=== PATIENT | female | born 1985 | race Caucasian/White ===

== ENCOUNTER 2023-06-18 11:42 | Emergency (ER) | payer MEDICAID, SELFPAY ==
[2023-06-18 11:46] VITALS: BP 120/83; PULSE 76; RESP 18; TEMP 36.5; O2SAT 100; BMI 25.4
--- NOTE | 2023-06-18 12:46 | ED.SKABFB1 ---
HPI - Skin/Abscess/Foreign Bdy General Chief complaint: Skin/Abscess/Foreign Body Stated complaint: UPPER EXTREMITY PAIN Time Seen by Provider: 06/18/23 11:51 Source: patient Mode of arrival: walk-in Limitations: no limitations History of Present Illness HPI narrative: 37-year-old female presents from drug rehab facility for an abscess on her right forearm. She injects subcutaneously narcotics. She states there is no needle broke off in there and it started within the last day or 2. No drainage. The pain is moderate and continuous. Related Data Home Medications Medication Instructions Recorded Confirmed buprenorphine 2 mg-naloxone 0.5 mg 1 film sublingual Q24H 06/18/23 06/18/23 sublingual film (Suboxone) buprenorphine 4 mg-naloxone 1 mg 1 film sublingual BID 06/18/23 06/18/23 sublingual film (Suboxone) clonidine HCl 0.1 mg tablet mg 06/18/23 cyclobenzaprine 5 mg tablet 5 mg PO Q12H PRN muscle spasm 06/18/23 06/18/23 dicyclomine 10 mg capsule 10 mg PO BID PRN abdominal pain 06/18/23 06/18/23 diphenhydramine HCl 25 mg tablet 25 mg PO BEDTIME PRN sleep 06/18/23 06/18/23 (Banophen) hydroxyzine pamoate 25 mg capsule 25 mg PO Q6H PRN itching 06/18/23 06/18/23 ibuprofen 600 mg tablet 600 mg PO Q6H PRN pain 06/18/23 06/18/23 melatonin 10 mg tablet 10 mg PO BEDTIME PRN sleep 06/18/23 06/18/23 naloxone 4 mg/actuation nasal spray 4 mg intranasal PRN opioid overdose 06/18/23 ondansetron 8 mg disintegrating 8 mg PO Q8H PRN nausea and vomiting 06/18/23 06/18/23 tablet Previous Rx's Medication Instructions Recorded cephalexin 500 mg capsule 500 mg PO QID 10 days #40 caps 06/18/23 sulfamethoxazole 800 1 tab PO BID 10 days #20 tabs 06/18/23 mg-trimethoprim 160 mg tablet (Bactrim DS) Allergies Allergy/AdvReac Type Severity Reaction Status Date / Time No Known Drug Allergies Allergy Verified 06/18/23 11:48 Review of Systems ROS Narrative A ten point review of systems is negative except as noted above. Exam Narrative Exam Narrative: Nurses note and vital signs reviewed and patient is not hypoxic. General: The patient appears well and in no apparent distress. Patient is resting comfortably on cart. Skin: Warm, dry, no pallor noted. There is no rash noted. Head: Normocephalic, atraumatic Eye: Normal conjunctiva, no drainage Ears, Nose, Mouth, and Throat: oral mucosa is moist. Nares patent. Cardiovascular: Regular Rate and Rhythm Respiratory: Patient is in no distress, no accessory muscle use, lungs are clear to auscultation, no wheezing, rales or rhonchi Back: non-tender GI: Normal bowel sounds, no tenderness to palpation, no masses appreciated. No rebound, guarding, or rigidity noted. Musculoskeletal: Numerous healed track justice on both arms. On her right forearm on the flexor side is an erythematous fluctuant tender raised area approximately 4 cm in diameter. Neurological: A&O, normal speech Psychiatric: Cooperative Constitutional Vital Signs, click to edit/add: Last Vital Signs Temp 97.7 F 06/18/23 11:46 Pulse 76 06/18/23 11:46 Resp 18 06/18/23 11:46 BP 120/83 06/18/23 11:46 Pulse Ox 100 06/18/23 11:46 Course Vital Signs Vital signs: Vital Signs Temperature 97.7 F 06/18/23 11:46 Pulse Rate 76 06/18/23 11:46 Respiratory Rate 18 06/18/23 11:46 Blood Pressure 120/83 06/18/23 11:46 Pulse Oximetry 100 06/18/23 11:46 Temperature 97.7 F 06/18/23 11:46 Pulse Rate 76 06/18/23 11:46 Respiratory Rate 18 06/18/23 11:46 Blood Pressure 120/83 06/18/23 11:46 Pulse Oximetry 100 06/18/23 11:46 MDM - Skin/Abscess/Foreign Bdy MDM Narrative Medical decision making narrative: She is prescribed Bactrim and Keflex and will return in 24 hours for packing removal. At this point she does not require IV antibiotics or admission to the hospital. Differential Diagnosis Differential diagnosis: Likely abscess of skin or subcutaneous tissue and cellulitis Discharge Plan Discharge Stand Alone Forms: Portal Instructions Chief Complaint: Skin/Abscess/Foreign Body Clinical Impression: Abscess of skin or subcutaneous tissue Patient Disposition: Home, Self-Care Time of Disposition Decision: 12:44 Condition: Good Mode of Transportation: Private Vehicle Prescriptions / Home Meds: New sulfamethoxazole-trimethoprim [Bactrim DS] 800-160 mg tablet 1 tab PO BID 10 Days Qty: 20 0RF cephalexin 500 mg capsule 500 mg PO QID 10 Days Qty: 40 0RF No Action cyclobenzaprine 5 mg tablet 5 mg PO Q12H PRN (Reason: muscle spasm) clonidine HCl 0.1 mg tablet dicyclomine 10 mg capsule 10 mg PO BID PRN (Reason: abdominal pain) diphenhydramine HCl [Banophen] 25 mg tablet 25 mg PO BEDTIME PRN (Reason: sleep) ibuprofen 600 mg tablet 600 mg PO Q6H PRN (Reason: pain) melatonin 10 mg tablet 10 mg PO BEDTIME PRN (Reason: sleep) naloxone 4 mg/actuation spray,non-aerosol 4 mg INTRANASAL PRN (Reason: opioid overdose) ondansetron 8 mg tablet,disintegrating 8 mg PO Q8H PRN (Reason: nausea and vomiting) hydroxyzine pamoate 25 mg capsule 25 mg PO Q6H PRN (Reason: itching) buprenorphine-naloxone [Suboxone] 4-1 mg film 1 film sublingual BID buprenorphine-naloxone [Suboxone] 2-0.5 mg film 1 film sublingual Q24H Instructions: Abscess (ED), Abscess Incision and Drainage (DC) Additional Instructions: Return in 24 hours for packing removal Referrals: Physician,Non-Staff, MD [Primary Care Provider] - 1 week Procedures ED Procedure Instructions Procedures Procedures: The following procedure was performed by me. Local infiltration was carried out with 1% lidocaine without epinephrine resulting in complete skin anesthesia. The area was prepped with Betadine x 3 and draped sterilely. Using a #11 blade the abscess was incised and drained of a moderate amount of purulent material and quadrant iodoform packing applied. No complications and she tolerated the procedure well.
[2023-06-18 13:08] VITALS: BP 111/77; PULSE 64; RESP 18; O2SAT 99
== END 2023-06-18 13:10 | disposition home or self-care (01) ==
PROVIDERS: Emergency Provider Emergency Medicine
DX: L02.413 Cutaneous abscess of right upper limb (principal); F11.90 Opioid use, unspecified, uncomplicated; Z79.899 Other long term (current) drug therapy
CPT/HCPCS: 10060; 99284